=== PATIENT | female | born 1980 | race African-American/Black ===

== ENCOUNTER 2022-09-13 06:07 | Emergency (ER) | payer SELFPAY ==
[~2022-09-13] VITALS: Ht 160 cm; Wt 110.6 kg
[2022-09-13 06:20] VITALS: BP 160/97
[2022-09-13] MEDS ORDERED: MENT1.1L MM (06:38)
[2022-09-13] MEDS ORDERED: BENZ100C86 MT (06:38)
[2022-09-13] MEDS ORDERED: VISCOUS LIDOCAINE 2% 15 ML UDC MM ONE (06:45)
== END 2022-09-13 07:01 | disposition home or self-care (01) ==
LOC: ER 06:19
DX: S00.512A Abrasion of oral cavity, initial encounter (principal); X58.XXXA Exposure to other specified factors, initial encounter; Y93.89 Activity, other specified; Y92.89 Other specified places as the place of occurrence of the external cause; Y99.8 Other external cause status; Z98.890 Other specified postprocedural states
CPT/HCPCS: 99283